=== PATIENT | female | born 1990 | race Caucasian/White ===

== ENCOUNTER 2020-11-16 12:39 | Emergency (ER) | payer OTHER ==
[2020-11-16 12:54] VITALS: BP 119/84; PULSE 62; TEMP 98; BMI 25.6
[2020-11-16] MEDS ORDERED: ONDANSETRON *ODT* 4 MG TABLET SL ONE (13:55)
[2020-11-16] MEDS ORDERED: DIPHTH,PERTUSS(ACELL),TET 0.5 ML DISP.SYRIN IM ONE ×2 (13:55→14:00)
[2020-11-16] MEDS ORDERED: ONDANSETRON *ODT* 4 MG TABLET ONE (14:00)
[2020-11-16] MEDS ORDERED: LIDOCAINE HCL 1%, 10 MG/ML (20ML VIAL) ONE (14:15)
== END 2020-11-16 15:05 | disposition home or self-care (01) ==
LOC: EDBD → JERFT 12:39
PROC: 0HQBXZZ Repair Right Upper Arm Skin, External Approach (ICD-10-PCS; principal; 2020-11-16)
PROC: 3E0234Z Introduction of Serum, Toxoid and Vaccine into Muscle, Percutaneous Approach (ICD-10-PCS; 2020-11-16)
DX: S41.111A Laceration without foreign body of right upper arm, initial encounter (principal)
CPT/HCPCS: 12004; 90471; 90715; 99284-25; Q0162